=== PATIENT | male | born 1960 | race Two or more races ===

== ENCOUNTER 2016-12-06 14:31 | Inpatient (IN) | payer BC, SELFPAY ==
[~2016-12-06] VITALS: Ht 172.7 cm; Wt 63.8 kg
--- NOTE | ~2016-12-06 | HP ---
ADMIT: 12/06/2016 RM/LOC: 508 [facility] MR#: [id number] [address] [address] DALTON SALDANA [address] [place] [address] History and Physical SEX: M AGE: 56 : 1960 DATE OF SERVICE: 12/06/2016 CHIEF COMPLAINT: Abdominal pain. HISTORY OF PRESENT ILLNESS: Dalton is a very pleasant, 56-year-old, male, who presented to the [facility] Emergency Department this afternoon with just less than 24 hours of diffuse and colicky abdominal pain and distention, which started about 7:00 in the evening last night. He reports it started after dinner. He had nausea, but no vomiting, and has had significant abdominal distention since. Workup in the ER showed a mildly elevated white count and a CT scan showing findings suggestive for a small bowel obstruction. It should be noted a laparoscopic umbilical hernia repair with Dr. Morrow in late 2015. PAST MEDICAL HISTORY: Remarkable for: 1. Hypertension. 2. Gastroesophageal reflux disease. 3. History of H. pylori infection. PAST SURGICAL HISTORY: Laparoscopic umbilical hernia repair in late 2015. ALLERGIES: NO KNOWN MEDICAL ALLERGIES. MEDICATIONS: His outpatient medications include: 1. Omeprazole. 2. Losartan. 3. Prophylactic aspirin 81 mg daily. SOCIAL HISTORY: He is a nonsmoker. Denies any alcohol or recreational drug use. 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 FAMILY HISTORY: Noncontributory. REVIEW OF SYSTEMS: As per HPI. All others reviewed were negative. PHYSICAL EXAMINATION: VITAL SIGNS: Blood pressure is 121/76, pulse of 82, respirations 18, temp is 98.8, O2 saturation is 92% on room air. GENERAL: He is awake, alert, uncomfortable appearing, in mild discomfort and distress. HEENT: Normocephalic, atraumatic. NECK: Supple. No lymphadenopathy. HEART: Regular rate and rhythm. No murmurs, gallops, or rubs. LUNGS: Clear to auscultation bilaterally. ABDOMEN: Obese, distended. He has hyperactive, high-pitched bowel sounds. He is uncomfortable with palpation, but there are no zaid peritoneal signs. EXTREMITIES: No cyanosis, clubbing, or edema. LAB AND X-RAY DATA: CBC shows a white count of 11.1, hemoglobin of 17.8, and platelet of 211. Sodium 142, potassium 3.6, chloride 107, CO2 of 27, BUN 34, ADMIT: 12/06/2016 RM/LOC: 508 [facility] MR#: [id number] [address] [place] [id number] DALTON SALDANA [address] [place] [address] History and Physical SEX: M AGE: 56 : 1960 glucose 106, creatinine 1.1. Calcium 8.4. LFTs are within normal limits. Lipase is 109. CT scan of his abdomen and pelvis shows dilated fluid-filled small bowel loops with decompressed distal ilium and decompressed colon suggestive for small bowel obstruction. No pelvic or abdominal ascites, no mass noted. ASSESSMENT AND PLAN: 1. Acute small bowel obstruction. 2. Hypokalemia. 3. Hypertension. 4. Gastroesophageal reflux disease. 5. History of H. pylori infection. PLAN: Dalton comes to the med/surg floor with an NG tube in place and already at low intermittent suction, it has put out 400 mL of what appears to be feculent material. We will continue NG suction or in the overnight period. I am also going to ask General Surgery to see him. We will start him on Zofran and Phenergan for his nausea and morphine for pain. We will replace his potassium with 40 mEq of potassium intravenously over the next 4 hours. We will plan on a repeat CBC, CMP, and a flat plate of his abdomen in the morning. IV fluids are running at 120 mL/h. We will start him on TEDs and SCDs for DVT prophylaxis and we will start him on Lovenox in the short term for DVT prophylaxis. Carrington Pacheco MD/ juliet JOB #: [id number] CC: Carrington Pacheco, Attending Physician Carrington Pacheco, Family Physician
[2016-12-09] MEDS ORDERED: LOSARTAN-HCTZ1 EAC2 PO (09:56)
[2016-12-09] MEDS ORDERED: PRILOSEC DPS20 MG PO (09:56)
[2016-12-09] MEDS ORDERED: ASPIRIN EC81 MG PO (09:56)
--- NOTE | 2016-12-09 16:41 | ER ---
ADMIT: 12/06/2016 RM/LOC: 508 [facility] MR#: [id number] [address] [address] DAT SAL[address]NA [address] [place] [address] Emergency Room Report SEX: M AGE: 56 : 1960 DATE: 12/06/2016 The patient's regular physician is Dr. Pacheco. For chief complaint, history of present illness, past medical history, medications, allergies, review of systems, including physical exam, please see my T-sheet. INTERIM HISTORY: The patient is a 56-year-old male, who comes in today with abdominal pain that has been going on since last night. He felt nauseous. He thought maybe he had eaten something that did not agree with him. He said he feels really bloated. He has had some diarrhea that has been very watery. He denies any blood in his stool. He states he has never had pain like this before. PAST MEDICAL HISTORY: Significant for hypertension, kidney stones, and an umbilical hernia repair. MEDICATIONS: Include blood pressure medicines. PHYSICAL EXAMINATION: VITAL SIGNS: Blood pressure is 152/79, pulse 90, respirations 20, temperature 97.7. GENERAL: The patient is alert, moderately distressed. ABDOMEN: Distended. Bowel sounds are high-pitched and decreased. There is no evidence of guarding or rebound. LABORATORY VALUES: White count is 11. Chemistries are within normal limits excluding a potassium at 3.6. IMAGING: CT shows a small bowel obstruction. No obvious transition point. EMERGENCY ROOM COURSE: The patient received an IV with normal saline and morphine and Zofran for pain and nausea. He is feeling more comfortable. An NG tube was placed which has resulted in a significant amount of results on suction. I spoke with Dr. Pacheco, who is agreeable to admit the patient to the hospital for further care. The patient is in stable condition at the time of admission. YG Dumont / Zacarias Ann MD / juliet JOB #: [id number] CC: Carrington Pacheco MD, Attending Physician Carrington Pacheco MD, Family Physician
--- NOTE | 2016-12-13 12:56 | DS ---
ADMIT: 12/06/2016 RM/LOC: 508 [facility] MR#: [id number] [address] [address] DAT SALDANA [address] [place] [address] Discharge Summary SEX: M AGE: 56 : 1960 ADMISSION DATE: 12/06/2016 DISCHARGE DATE: 12/08/2016 ADMITTING DIAGNOSIS: Small bowel obstruction. DISCHARGE DIAGNOSIS: Small bowel obstruction resolved. PROCEDURES: None. CONSULTATIONS: Dr. Morrow, General Surgery, consulted on 12/06/2016. HISTORY AND PHYSICAL EXAMINATION: Dat is a very pleasant, 56-year-old, male, who presented to the [facility] Emergency Department on the afternoon of 12/06/2016 with just less than 24 hours of diffuse colicky abdominal pain and distention starting around 7 o'clock in the evening the night prior to admission. He had experienced nausea but no vomiting along with significant abdominal distention. ER workup showed an elevated white count and a CT scan suggestive for small bowel obstruction. He had had a previous laparoscopic umbilical hernia repair with Dr. Morrow in late 2015. He was subsequently admitted to the hospital with an NG tube on suction. HOSPITAL COURSE: Dat was admitted to the med/surg floor with an NG tube to low intermittent suction in the overnight period from 12/06 into 12/07. On the morning of 12/07, his abdominal distention and pain had improved significantly, and he was passing gas and had actually had a bowel movement in the overnight. A decision was made to clamp his NG tube and start him on a liquid diet. Throughout the day on 12/07, he did well with this and had a residual less than 100 mL from his NG tube. As such, the NG tube was pulled and the patient was advanced on his diet. In the overnight period from 12/07 into 12/08, he had no further episodes of abdominal distention, nausea, vomiting, or abdominal pain. He tolerated a breakfast of oatmeal on the morning of 12/08/2016 and again did not experience any further recurrence of his small bowel obstructive symptoms. The decision was made to discharge him to home on the morning of 12/08/2016. ADMIT: 12/06/2016 RM/LOC: 508 [facility] MR#: [id number] [address] [address] ADT SAL[address]NA [address] [place] [address] Discharge Summary SEX: M AGE: 56 : 1960 DISPOSITION: He will be discharged home. DISCHARGE CONDITION: Good. DISCHARGE MEDICATIONS: 1. Aspirin 81 mg daily. 2. Omeprazole 20 mg daily. 3. Hyzaar 50/12.5, one tab daily. FOLLOWUP: He is to follow up with me in 1-2 weeks in my clinic. Will clarify with Dr. Morrow what he would recommend for followup with him prior to discharge. Carrington Pacheco MD/ swetha JOB #: [id number] CC: Carrington Pacheco MD, Attending Physician Carrington Pacheco MD, Family Physician
--- NOTE | 2016-12-27 08:53 | CO ---
ADMIT: 12/06/2016 RM/LOC: 8 [facility] MR#: [id number] [address] [place] [address] DAT SAL[address]NA [address] [place] [address] Consultation SEX: M AGE: 56 : 1960 DATE OF CONSULTATION: 12/06/2016 ATTENDING PHYSICIAN: Carrington Pacheco MD CONSULTING PHYSICIAN: Bryon Morrow MD HISTORY OF PRESENT ILLNESS: The patient is a pleasant 56-year-old male, whom I did an open umbilical hernia repair with mesh several months ago, who comes in with nausea, abdominal distention and pain. Workup revealed a possible small bowel obstruction, was admitted for observation and bowel rest and fluids. PAST MEDICAL HISTORY: 1. Reflux disease. 2. Hypertension. 3. History of H-pylori infection. PAST SURGICAL HISTORY: Umbilical hernia repair several months ago. ALLERGIES: HE HAS NO ALLERGIES. MEDICATIONS: 1. Losartan. 2. Omeprazole. 3. Aspirin. SOCIAL HISTORY: He is a nondrinker and nonsmoker. FAMILY HISTORY: Noncontributory. REVIEW OF SYSTEMS: No headaches. No chest pain or shortness of breath. He has had abdominal distention, abdominal discomfort, and nausea per HPI. He has had no real change in bowel function. No diarrhea. No constipation. No hematologic, neurologic, or psychiatric issues. ADMIT: 12/06/2016 RM/LOC: 8 [facility] MR#: [id number] [address] [place] [address] DAT SAL[address]NA [address] [place] [address] Consultation SEX: M AGE: 56 : 1960 PHYSICAL EXAMINATION: VITAL SIGNS: He is afebrile. Vitals stable. HEART: Regular. LUNGS: Clear. ABDOMEN: Soft and mildly distended. Mildly tender to deep palpation throughout. EXTREMITIES: No peripheral edema. NEURO: No focal neurologic deficits. ASSESSMENT AND PLAN: The patient is a 56-year-old with possible partial small bowel obstruction. We will plan on bowel rest, IV fluids, and observation. Hopefully, this can be managed non-operatively. We will follow his clinical course carefully. Bryon Morrow MD/ modl JOB #: [id number] CC: Carrington Pacheco MD, Attending Physician Carrington Pacheco MD, Family Physician
== END 2016-12-08 09:45 | disposition home or self-care (01) | DRG 390 ==
LOC: ER 14:31 → 5MS 16:25
PROVIDERS: ADMIT Family Medicine
DX: K56.60 Unspecified intestinal obstruction (principal); I10 Essential (primary) hypertension; E87.6 Hypokalemia; K21.9 Gastro-esophageal reflux disease without esophagitis; Z79.82 Long term (current) use of aspirin; Z87.442 Personal history of urinary calculi